=== PATIENT | female | born 1980 | race Two or more races ===

== ENCOUNTER → 2023-05-21 07:42 | Outpatient (REF) | payer BC, SELFPAY ==
[2023-05-21] MEDS: CATHFLO/ACTIVASE 50 MG IV (08:54)
== END ==
LOC: RADI 07:42
PROVIDERS: ATTENDING PHYSICIAN Family Medicine
DX: T82.594A Other mechanical complication of infusion catheter, initial encounter (principal); Y82.8 Other medical devices associated with adverse incidents
CPT/HCPCS: 36593; 36598; J2997

== ENCOUNTER → 2023-05-24 12:21 | Outpatient (REF) | payer BC, SELFPAY ==
[2023-05-24 12:48] VITALS: BP 105/77; BP_SYST 85
[2023-05-24] MEDS: ANCEF 10 IV (13:20)
[2023-05-24 15:05] VITALS: BP 98/69; BP_SYST 66
== END ==
LOC: RADI 12:21
PROVIDERS: ATTENDING PHYSICIAN Radiology Vascular & Interventional Radiology; FAMILY PHYSICIAN Internal Medicine; REFERRING PHYSICIAN Family Medicine
DX: T82.594A Other mechanical complication of infusion catheter, initial encounter (principal); Y82.8 Other medical devices associated with adverse incidents
CPT/HCPCS: 36582; 36595; 75901; 77001; 99152; 99153; C1725; C1769; C1788

== ENCOUNTER → 2023-08-13 12:43 | Outpatient (REF) | payer BC, SELFPAY | LOC: HWRAD 12:43 | PROVIDERS: ATTENDING PHYSICIAN Family Medicine; FAMILY PHYSICIAN Internal Medicine | DX: M25.531 Pain in right wrist (principal); M79.601 Pain in right arm | CPT/HCPCS: 73080; 73110 ==

== ENCOUNTER → 2023-09-06 13:40 | Outpatient (REF) | payer BC, SELFPAY | LOC: RAD 13:40 | PROVIDERS: ATTENDING PHYSICIAN Family Medicine | DX: M54.50 Low back pain, unspecified (principal) | CPT/HCPCS: 76770 ==

== ENCOUNTER → 2023-09-21 09:30 | Outpatient (REF) | payer BC, SELFPAY | LOC: HWRAD 09:30 | PROVIDERS: ATTENDING PHYSICIAN Family Medicine; FAMILY PHYSICIAN Internal Medicine | DX: R10.84 Generalized abdominal pain (principal); R50.9 Fever, unspecified; M54.50 Low back pain, unspecified | CPT/HCPCS: 74177; Q9967 ==

== ENCOUNTER → 2024-01-14 12:42 | Outpatient (REF) | payer BC, SELFPAY | LOC: HWRAD 12:42 | PROVIDERS: ATTENDING PHYSICIAN Family Medicine; FAMILY PHYSICIAN Internal Medicine | DX: M25.521 Pain in right elbow (principal); M25.551 Pain in right hip | CPT/HCPCS: 73080; 73502 ==

== ENCOUNTER → 2024-02-18 13:39 | Outpatient (REF) | payer BC, SELFPAY | LOC: HWWDC 13:39 | PROVIDERS: ATTENDING PHYSICIAN Internal Medicine | DX: Z12.31 Encounter for screening mammogram for malignant neoplasm of breast (principal) | CPT/HCPCS: 77063; 77067 ==

== ENCOUNTER → 2024-02-25 09:54 | Outpatient (REF) | payer BC, SELFPAY | LOC: HWRAD 09:54 | PROVIDERS: ATTENDING PHYSICIAN Internal Medicine Rheumatology; FAMILY PHYSICIAN Internal Medicine | DX: M81.8 Other osteoporosis without current pathological fracture (principal) | CPT/HCPCS: 77080 ==

== ENCOUNTER → 2024-04-11 12:05 | Outpatient (REF) | payer BC, SELFPAY | LOC: WOUND 12:05 | PROVIDERS: ATTENDING PHYSICIAN Surgery | DX: L89.119 Pressure ulcer of right upper back, unspecified stage (principal); K31.84 Gastroparesis; E46 Unspecified protein-calorie malnutrition; M81.8 Other osteoporosis without current pathological fracture | CPT/HCPCS: 99213 ==

== ENCOUNTER 2024-11-20 14:49 | Emergency (ER) | payer BC, SELFPAY ==
[2024-11-20 14:52] VITALS: BP 130/81
--- NOTE | 2024-11-20 16:35 | ED.GENMED ---
History of Present Illness
General
Chief Complaint: Numbness
Time Seen by Provider: 11/20/24 16:32
History of Present Illness
History of Present Illness:
44-year-old female presents to the emergency department for evaluation of an episode of abrupt onset paresthesia weakness of both lower legs occurring 2 days ago causing her to gently fall to the ground. She has also had facial spasms and left arm
weakness since that time. Denies fevers or chills
Past History
Past History
ED Past Medical History: Other (Migraines)
ED Past Surgical History: None
Social History
Tobacco: Non-smoker
Alcohol: None
Drug: None
Personal:
Living: with family
Employment: Employed
Family History
Family History: Other (Noncontributory)
Review of Systems
Review of Systems
Allergies reviewed?: Yes
All Other Systems: ROS reviewed and negative except as documented in HPI and ROS
Phy Exam
Physical Exam
Physical Exam:
GEN: Well appearing, NAD, WDWN
HEENT: Oral mucosa moist, no scleral icterus, no nasal congestion
Cardiac: Regular rate
Lung: No respiratory distress, no tachypnea
MSK: No gross deformity or injuries
Skin: Good color, no pallor or jaundice, no rashes
Neuro: AO x3; CN II-XII grossly intact. LUE strength 4/5, RUE 5/5, sensation intact and symmetric. LLE strength 4/5, RLE 5/5, sensation intact and symmetric
Psych: Calm, cooperative
Course
Orders/Labs/Results
Orders:
Orders
11/20/24 16:59
CT Head W/o Iv Contrast Urgent
Comment:
Reason For Exam: L sided weakness
11/20/24 17:12
CR Chest Portable - 1 View Urgent
Comment:
Reason For Exam: PICC line
Reason Study Needs to be Portable: Other
11/20/24 17:13
B12 [Vitamin B12] Urgent
Complete Blood Count/With Diff Urgent
Comprehensive Metabolic Panel Urgent
Folate Urgent
Magnesium Urgent
11/20/24 19:42
CT Cervical Spine W/o Iv Contr Routine
Comment:
Reason For Exam: transient paraparesis
CT Thoracic Spine W/o Iv Contr Routine
Comment:
Reason For Exam: transient paraparesis
11/20/24 20:13
Lactate Level [Lactic Acid] Routine
Pyruvic Acid (Pyruvate) [S] Routine
Abnormal Lab Results
11/20/24 11/20/24
17:13 20:13
RBC 3.03 L 10^6/uL
(4.20-5.40)
Hgb 8.7 L g/dL
(12.0-16.0)
Hct 27.7 L %
(37.0-47.0)
MCHC 31.4 L g/dL
(33.0-37.0)
RDW 15.5 H %
(11.5-14.5)
Chloride 108 H mmol/L
(98-107)
Lactic Acid < 0.5 L mmol/L
(0.7-2.0)
Total Protein 6.0 L g/dl
(6.3-8.2)
Vitamin B12 > 1000 H pg/ml
(239-931)
11/20/24 17:13
11/20/24 17:13
Vital Signs
Initial and Last Documented VS:
Initial Vital Signs
Temp Pulse Resp BP Pulse Ox
98.4 F 78 18 130/81 100
11/20/24 14:52 11/20/24 14:52 11/20/24 14:52 11/20/24 14:52 11/20/24 14:52
Last Documented Vital Signs
Temp Pulse Resp BP Pulse Ox
98.4 F 78 18 112/79 99
11/20/24 14:52 11/20/24 14:52 11/20/24 14:52 11/20/24 20:00 11/20/24 20:01
MDM/Problems Addressed
MDM/Problems Addressed:
Pt seen by neuro, triad of chronic conditions coupled with new stroke like presentation consistent with MELAS, recommending IV arginine however not in stock on formulary, PO cocktail advised by neuro. Pt able to ambulate at time of discharge.
*Pulse Oximetry
SaO2: 100
Oxygen Mode of Delivery: Room air
Patient hypoxic: no
*Critical Care Note
Total Time (30-74mins, 75-104mins- exclusive of procedures): Not Applicable
ED Attending Note
-
Portions of this chart may have been created with voice recognition software.� Occasional wrong word or��sound alike� substitutions may have occurred due to the inherent limitations of voice recognition software.
Discharge Plan
Departure
Patient Disposition: Home (Routine Discharge)
Date of Disposition: 11/20/24
Time of Disposition: 22:15
Patient with high blood pressure during this ER visit?: No
Discharge Problem:
Stroke-like symptoms
Instructions: Peripheral Neuropathy (DC)
Prescriptions:
No Action
ondansetron HCl [Zofran] 4 mg Tablet
4 mg PO Q8HPRN PRN (Reason: nausea)
bisacodyl [Dulcolax (bisacodyl)] 5 mg Tablet,Delayed Release (Dr/Ec)
5 mg PO HS
topiramate [Topamax] 200 mg Tablet
200 mg PO DAILY
albuterol sulfate 90 mcg/actuation Hfa Aerosol Inhaler
2 puff INHALATION Q6H PRN (Reason: wheezing)
Motegrity 2 mg Tablet
2 mg PO DAILY
[id number] 200-5-0.8-400 mg Capsule
1 cap PO DAILY
Vyepti 100 mg/mL Solution
300 mg IV [id number]
multivitamin Tablet
1 tab PO DAILY
cromolyn 100 mg/5 mL Concentrate
100 mg PO QID
cetirizine [Zyrtec] 10 mg Tablet
10 mg PO DAILY
dronabinol [Marinol] 2.5 mg Capsule
2.5 mg PO BID
montelukast [Singulair] 10 mg Tablet
10 mg PO DAILY
epinephrine [EpiPen] 0.3 mg/0.3 mL Auto-Injector
0.3 mg IM Q5-15M PRN (Reason: allergic reaction)
ibuprofen [Motrin] 600 mg Tablet
600 mg PO Q6H PRN (Reason: pain)
neomycin-polymyxin B-dexameth [Maxitrol] 3.5 mg/g-10,000 unit/g-0.1 % Ointment
3.5 applic DIRECTED
Vitamin D2 25,000 unit Capsule
50,000 unit PO DIRECTED
magnesium 200 mg Tablet
200 mg PO DAILY
aprepitant [Emend] 80 mg Capsule
80 mg PO DAILY PRN (Reason: nausea)
zoledronic debt-dqnneovw-oewfk [Reclast] 5 mg/100 mL Piggyback
5 mg IV DIRECTED
naltrexone 4.5 mg Capsule
6 mg PO DAILY
Rx Instructions:
Compounded
Domperidone 10 mg
10 mg PO PRN PRN (Reason: nausea)
Referrals:
UNKNOWN - PT DOES,NOT KNOW [Family Provider]
Activity Restrictions/Additional Instructions:
Per the neurologist recommendations, please take 24g (24,000mg) of L arginine orally tomorrow. This should be spaced out over the course of the day to allow for gastric absorption. If you can find a powdered/dissolving product, this will be easier.
The following day, the recommendation is to take the following regimen:
Arginine 2g three times per day
Citrulline 2g three times per day
CoQ10 200mg three times per day
Creatine Monohydrate 5g twice daily
Carnitine 660mg daily
Interventions
Interventions:
*Risk Screen - Suicide Last Done: 11/20/24 14:52
*General Assessment Last Done: 11/20/24 14:52
*Neglect/Abuse Screening Last Done: 11/20/24 14:52
*ED- Fall Risk Assessment Last Done: 11/20/24 22:23
*ED COVID-19 Vaccine History Last Done: 11/20/24 22:23
*Nursing Disposition Last Done: 11/20/24 22:23
ED- Neurological Assessment Last Done: 11/20/24 17:00
Discharge Date and Time
Discharge Date/Time: 11/20/24 22:23
Print Language: CITIZEN OF [place]
[2024-11-20 17:16] VITALS: BP 114/74
[2024-11-20 17:25] LABS: Hematocrit 27.7 % (37.0-47.0); Hemoglobin 8.7 g/dL (12.0-16.0); Mean Corp Hgb Conc. 31.4 g/dL (33.0-37.0); Mean Corpuscular Volume 91.4 fL (81.0-99.0); Nucleated Red Blood Cells % 0 %; Platelet Count 194 10^3/uL (130-400); Red Cell Dist. Width 15.5 % (11.5-14.5)
[2024-11-20 17:44] LABS: ALT (SGPT) < 10 U/L (0-35); AST (SGOT) 23 U/L (14-36); Albumin 3.6 g/dl (3.5-5.0); Alkaline Phosphatase 45 U/L (38-126); Blood Urea Nitrogen 14 mg/dl (7-17); Calcium 8.8 mg/dl (8.4-10.2); Carbon Dioxide 28 mmol/L (22-30); Chloride 108 mmol/L (98-107); Glucose 84 mg/dl (70-99); Magnesium 1.9 mg/dl (1.6-2.3); Potassium 3.9 mmol/L (3.5-5.1); Sodium 136 mmol/L (135-145); Total Protein 6.0 g/dl (6.3-8.2); eGFR > 60.00
[2024-11-20 18:58] LABS: Folate 5.2 ng/ml (2.76-20); Vitamin B12 > 1000 pg/ml (239-931)
[2024-11-20 19:18] VITALS: BMI 17.9
--- NOTE | 2024-11-20 19:44 | CON.NEURO ---
Neuro Assessment/Plan
Assessment
severe gastroparesis + hemiplegic migraines in a young person = MELAS (mitochondrial encephalopathy, lactic acidosis, and stroke like episodes) until proven otherwise (she does not carry this dx)
she presents with acute exacerbation
will check lactate/pyruvate; elevated ratio indicates acute exacerbation.
acute treatment I recommended IV Arginine 24 g (0.5/kg) to prevent brain damage caused by impaired vasodilation from nitric oxide depletion
however we don't have in stock; her exacerbation seems mild, and I think she will be OK taking 8 g TID for the acute exacerbation.
outpatient my chronic recipe to get her started would be
Arginine 2g TID, Citrulline 2 g TID, CoQ 200 TID, Creatine 5 g BID, Carnitine 660 dichloracetate 250-500 TID,
there are multiple other vitamins/supplements used for this condition and each neuromuscular doc and each patient has their own recipe so she should figure out her own or ask an outpatient [place] specialist, and knowing the genetics may help her
determine what may be most useful and what other conditions (arrhythmias, cardiomyopathy, etc that she may be at risk for.
transient paraparesis/leg numbness, check CT cervical and thoracic spine r/o cord compression or dissection/cord TIA
then she can go home
Consultation
Order
Date of Consultation: 11/20/24
Requesting Provider: Gerry
Reason for Consult: leg weakness
Subjective/Objective
Subjective Data
Date of Service: November 20, 2024
44 yo female. Hx of gastroparesis on chronic TPN x6 months. 2 days ago, she had episode of transient paraplegia and leg numbness x 3 minutes. She had been awake for quite some time, and had just finished a virtual doctor's appointment 10 weeks ago.
she went to get out of bed and felt the 'legs give out' with complete loss of sensation 'from the waist down' bilaterally.
She has chronic LUE/LLE weakness from daily hemiplegic migraine, her PCP was concerned that she seems worse today. She has severe headaches 16/10
the gastroparesis and hemiplegic migraines began ~6 years ago.
Objective Data
Vital Signs
Temp Pulse Resp BP Pulse Ox
36.9 C 78 18 114/74 100
11/20/24 14:52 11/20/24 14:52 11/20/24 14:52 11/20/24 17:16 11/20/24 17:18
Lab Results
11/20/24 17:13
11/20/24 17:13
Sodium 136 mmol/L (135-145) 11/20/24 17:13
Potassium 3.9 mmol/L (3.5-5.1) 11/20/24 17:13
BUN 14 mg/dl (7-17) 11/20/24 17:13
Glucose 84 mg/dl (70-99) 11/20/24 17:13
Calcium 8.8 mg/dl (8.4-10.2) 11/20/24 17:13
Vitamin B12 > 1000 pg/ml (239-931) H 11/20/24 17:13
Patient Allergies
celecoxib (From Celebrex) Allergy (Verified 04/11/19 11:23)
Nausea / Vomiting
tramadol Allergy (Verified 04/11/19 11:23)
Nausea / Vomiting
Physical Exam
-
AAOx3, speech clear, language intact.
VFF, EOMI, face symmetric
LUE/LE 5-/5, L pronator drift
sensation intact to touch/pin
Medications
-
Active Medications
Generic Name Dose Route Start Last Admin
Trade Name Freq PRN Reason Stop Dose Admin
Arginine HCl 240 mls @ 240 mls/hr 11/20/24 20:00
R-Gene 10 IV 11/20/24 20:59
TODAY ONE
Home Medications
�Medication �Instructions �Recorded
albuterol sulfate 90 mcg/actuation 2 puff inhalation Q6H PRN wheezing 11/03/22
aerosol inhaler
bisacodyl 5 mg tablet,delayed 5 mg PO HS 01/26/22
release (Dulcolax (bisacodyl))
eptinezumab-jjmr 100 mg/mL 300 mg IV [id number] 01/26/22
intravenous solution (Vyepti)
ondansetron HCl 4 mg tablet 4 mg PO Q8HPRN PRN nausea 01/26/22
prucalopride 2 mg tablet 2 mg PO DAILY 01/26/22
(Motegrity)
topiramate 200 mg tablet (Topamax) 200 mg PO DAILY 01/26/22
ubiquinol 200 mg-B12 5 mg-folic 1 cap PO DAILY 01/26/22
acid 0.8 mg-resveratrol 400 mg
capsule
Domperidone 10 mg PO PRN PRN nausea 05/24/23
aprepitant 80 mg capsule (Emend) 80 mg PO DAILY PRN nausea 05/24/23
cetirizine 10 mg tablet (Zyrtec) 10 mg PO DAILY 05/24/23
cromolyn 100 mg/5 mL oral 100 mg PO QID 05/24/23
concentrate
dronabinol 2.5 mg capsule (Marinol) 2.5 mg PO BID 05/24/23
epinephrine 0.3 mg/0.3 mL 0.3 mg IM Q5-15M PRN allergic 05/24/23
injection, auto-injector (EpiPen) reaction
ergocalciferol (vitamin D2) 25,000 50,000 unit PO DIRECTED 05/24/23
unit capsule
ibuprofen 600 mg tablet 600 mg PO Q6H PRN pain 05/24/23
magnesium 200 mg tablet 200 mg PO DAILY 05/24/23
montelukast 10 mg tablet 10 mg PO DAILY 05/24/23
(Singulair)
multivitamin 1 tab PO DAILY 05/24/23
naltrexone 4.5 mg capsule 6 mg PO DAILY 05/24/23
neomycin 3.5 mg/g-polymyxin B 3.5 applic DIRECTED 05/24/23
10,000 unit/g-dexameth 0.1 % eye
oint (Maxitrol)
zoledronic acid 5 mg/100 mL in 5 mg IV DIRECTED 05/24/23
mannitol 5 %-water intravenous
piggybck (Reclast)
[2024-11-20 20:00] VITALS: BP 112/79
== END 2024-11-20 22:23 | disposition home or self-care (01) ==
LOC: EMR 14:49
PROVIDERS: Physician Assistant; Psychiatry & Neurology Clinical Neurophysiology; EMERGENCY PHYSICIAN Emergency Medicine
DX: R53.1 Weakness (principal); R20.2 Paresthesia of skin; G43.409 Hemiplegic migraine, not intractable, without status migrainosus; K31.84 Gastroparesis; Z88.5 Allergy status to narcotic agent; Z88.6 Allergy status to analgesic agent
CPT/HCPCS: 99284; 70450; 71045; 72125; 72128; 80053; 82607; 82746; 83605; 83735; 84210; 85025

== ENCOUNTER → 2024-12-15 11:08 | Outpatient (REF) | payer BC, SELFPAY ==
--- NOTE | 2024-12-15 12:24 | EEGC.RPT ---
Continuous EEG Report
Recording
Start Date of Data Reviewed: 12/15/24
End Date of Data Reviewed: 12/15/24
Done with Video Recording: Yes
Electrocardiogram: Unremarkable
Report
�TECHNICAL REMARKS:��This is a technically satisfactory eighteen channel record employing 21 disc electrodes applied according to a measured international 10-20 electrode placement system.��There were no significant technical difficulties.��The
study was done on a [employer] System.
STUDY DURATION: 29�mins,�23 secs.
CLINICAL HISTORY: This is a 44-year-old woman with transient sensory symptoms. This study was requested to look for epileptiform abnormalities.
�
MEDICATIONS: Topiramate
REPORT: �At the onset of the EEG, the patient is awake. The background activity consists of 9-10 Hz, persistent, posteriorly dominant, moderate amplitude, symmetric and rhythmic activity that is reactive to eye-opening. Anteriorly, it consists of a
mixture of low voltage indeterminate activity and 20-25 Hz, persistent, low amplitude, symmetric and rhythmic activity.� Stepwise intermittent photic stimulation (1-31 Hz) and hyperventilation (2 min, good effort) do not induce any abnormalities.
Hyperventilation was not performed. Drowsiness is characterized by low amplitude mixed frequency activity, decreased eye blinking, and muscle artifact.
�
�IMPRESSION: �This is a normal awake and drowsy EEG. There is no evidence of focal slowing or epileptiform activity.� A normal EEG does not rule out epilepsy. If the clinical picture warrants, a sleep-deprived awake and sleep record may be helpful.
�
�
== END ==
LOC: EEG 11:08
PROVIDERS: ATTENDING PHYSICIAN Psychiatry & Neurology Neurology; FAMILY PHYSICIAN Internal Medicine
DX: G40.909 Epilepsy, unspecified, not intractable, without status epilepticus (principal)
CPT/HCPCS: 95816

== ENCOUNTER → 2025-01-23 11:55 | Outpatient (REF) | payer BC, SELFPAY | LOC: PAVMRI 11:55 | PROVIDERS: ATTENDING PHYSICIAN Psychiatry & Neurology Neurology | DX: G43.909 Migraine, unspecified, not intractable, without status migrainosus (principal) | CPT/HCPCS: 70551 ==

== ENCOUNTER → 2025-03-06 06:57 | Outpatient (REF) | payer BC, SELFPAY | LOC: PAVMRI 06:57 | PROVIDERS: ATTENDING PHYSICIAN Psychiatry & Neurology Neurology | DX: M54.12 Radiculopathy, cervical region (principal) | CPT/HCPCS: 72141 ==